=== PATIENT | male | born 1990 | race Caucasian/White ===

== ENCOUNTER 2024-09-16 19:37 | Emergency (ER) | payer OTHER | END 2024-09-16 20:59 | disposition home or self-care (01) | LOC: JP.ED 19:37 | DX: S83.412A Sprain of medial collateral ligament of left knee, initial encounter (principal); F17.210 Nicotine dependence, cigarettes, uncomplicated; Z88.2 Allergy status to sulfonamides; W22.8XXA Striking against or struck by other objects, initial encounter; Y93.89 Activity, other specified | CPT/HCPCS: 73562-26-LT; 73562-LT; 99283 ==